=== PATIENT | male | born 1980 | race African-American/Black ===

== ENCOUNTER 2017-12-22 09:00 | Emergency (ER) | payer OTHER ==
[~2017-12-22] VITALS: Ht 180.3 cm; Wt 109.1 kg
[2017-12-22 09:30] LABS: APPEARANCE CLEAR ((CLEAR)); BILIRUBIN NEGATIVE; BLOOD NEGATIVE; COLOR YELLOW ((YELLOW)); GLUCOSE (STRIP) NEGATIVE; KETONES NEGATIVE; LEUKOCYTES NEGATIVE; NITRITE NEGATIVE; PROTEIN (STRIP) 30; SPECIFIC GRAVITY 1.026 (1.000-1.030); UCUL ADDED? NO
[2017-12-22 09:45] LABS: HEMATOCRIT 42.2 % (38.0-50.0); HEMOGLOBIN 14.5 G/DL (12.5-16.6); MCH 27.7 PG (29.0-34.0); MCHC 34.4 G/DL (30.0-36.0); MCV 80.5 FL (86-99); PLATELET COUNT 169 K/uL (156-360); RBC DIS.WIDTH-CV 12.8 % (11.8-14.6); RBC DIS.WIDTH-SD 36.8 % (39-53); RED BLOOD COUNT 5.24 M/uL (4.00-5.50); WHITE BLOOD COUNT 5.6 K/uL (4.1-10.2)
[2017-12-22 10:01] LABS: ALBUMIN 4.1 g/dL (3.2-4.8); CHLORIDE 103 mEq/L (99-109); POTASSIUM 3.8 mEq/L (3.7-5.4); SODIUM 137 mEq/L (136-147)
[2017-12-22 10:03] LABS: GLUCOSE 98 mg/dL (70-99); TOTAL PROTEIN 7.6 g/dL (6.4-8.3)
[2017-12-22 10:05] LABS: TOTAL BILIRUBIN 1.1 mg/dL (0.0-1.0)
[2017-12-22 10:07] LABS: ALKALINE PHOSPHATASE 49 IU/L (3-129)
[2017-12-22 10:08] LABS: UREA NITROGEN (BUN) 14 mg/dL (9-23)
[2017-12-22 10:09] LABS: AST (GOT) 30 IU/L (2-34)
[2017-12-22 10:10] LABS: ALT (GPT) 31 IU/L (3-49)
[2017-12-22 10:12] LABS: GFR ESTIMATE (CALCULATED) > 59 mL/min/ (58.99-99999)
[2017-12-22] MEDS ORDERED: BENTYL10 MG PO (12:18)
[2017-12-22] MEDS ORDERED: ZOFRAN4 MG PO (12:18)
[2017-12-22 12:27] VITALS: BP 112/67
== END 2017-12-22 12:28 | disposition home or self-care (01) ==
LOC: EME 09:00
DX: R10.9 Unspecified abdominal pain (principal); R19.7 Diarrhea, unspecified; K21.9 Gastro-esophageal reflux disease without esophagitis
CPT/HCPCS: 80053; 81003; 85027; 99281; 99284